=== PATIENT | female | born 1975 | race Caucasian/White ===

== ENCOUNTER 2025-02-16 19:50 | Emergency (ER) | payer MEDICAID, SELFPAY ==
[2025-02-16 19:54] VITALS: BP 128/90; PULSE 92; RESP 16; TEMP 36.7; O2SAT 100; BMI 19.3
--- NOTE | 2025-02-16 19:55 | ECG_ITS ---
[facility] Date: 2025-02-16 Pat Name: Marcia Diaz Department: Room: Gender: Female Incident Response Manager: : 1975 Requested By: Yue Avendaño Order Number: [id number] Isabell MD: Glendy Delgado M.D. Measurements Intervals [place] Rate: 88 P: 73 LA: 136 QRS: 80 QRSD: 89 T: 76 QT: 348 QTc: 422 Interpretive Statements SINUS RHYTHM PROBABLE INFERIOR MYOCARDIAL INFARCTION , OF INDETERMINATE AGE [35 ms Q WAVE IN II/aVF] No previous ECG available for comparison Electronically Signed On 02-17-2025 14:36:59 CDT by Glendy Delgado M.D. [email or web address]
--- NOTE | 2025-02-16 20:02 | XRR_ITS ---
PROCEDURE INFORMATION: Exam: XR Chest Exam date and time: 02/16/2025 8:10 PM Age: 49 years old Clinical indication: Pain; Chest pressure; Additional info: Chest pain TECHNIQUE: Imaging protocol: Radiologic exam of the chest. Views: 1 view. COMPARISON: No relevant prior studies available. FINDINGS: Lungs: Right lower lobe calcified granuloma. Pleural spaces: Unremarkable. No pleural effusion. No pneumothorax. Heart/Mediastinum: Unremarkable. No cardiomegaly. Bones/joints: Unremarkable. XR/XR chest 1V portable [id number] IMPRESSION: 1. No acute findings. 2. Right lower lobe calcified granuloma.
--- NOTE | 2025-02-16 20:08 | ED_ITS ---
HPI - Chest Pain 2 General: Chief Complaint: Chest Pain Stated Complaint: CP SOB Time Seen by Provider: 02/16/25 20:01 History of Present Illness: 49-year-old femaleWith a history of toba asset accountant dependence and hypertension who presents to the emergency room with chest pain. She has been having epigastric pain that is a Stevenson pressure.'s been going on for over a day now. She gone to local ambulance station and they done an EKG and felt like she needed to be evaluated so she finally came in. By the time she arrived here she said her pain had improved. Said for a while she was breathing shallowly and quickly to help with the pain. She developed some numbness in her hands around her mouth. No lower extremity swelling. No cardiac history. Related Data Allergies Allergy/AdvReac Type Severity Reaction Status Date / Time No Known Allergies Allergy Verified 02/16/25 19:59 Review of Systems 2 Narrative: Constitutional symptoms: Negative except as documented in HPI. Skin symptoms: Negative except as documented in HPI. Eye symptoms: Negative except as documented in HPI. ENMT symptoms: Negative except as documented in HPI. Respiratory symptoms: Negative except as documented in HPI. Cardiovascular symptoms: Negative except as documented in HPI. Gastrointestinal symptoms: Negative except as documented in HPI. Genitourinary symptoms: Negative except as documented in HPI. Musculoskeletal symptoms: Negative except as documented in HPI. Neurologic symptoms: Negative except as documented in HPI. Psychiatric symptoms: Negative except as documented in HPI. Endocrine symptoms: Negative except as documented in HPI. Physical Exam 2 Narrative: EXAM NARRATIVE: General: Alert, no acute distress. Skin: Warm, dry. Head: Normocephalic, atraumatic. Neck: Supple, trachea midline. Eye: Extraocular movements are intact. Ears, nose, mouth and throat: mucosa moist. Cardiovascular: Regular, Normal peripheral perfusion. Respiratory: Lungs are clear to auscultation, respirations are non-labored, breath sounds are equal, Symmetrical chest wall expansion. Gastrointestinal: Soft, Nontender, Non distended Musculoskeletal: Normal ROM, no deformity. Neurological: Alert and oriented, No focal neurological deficit observed. Psychiatric: Cooperative, appropriate mood & affect. Course 2 Vital Signs: Vital signs: Vital Signs Temperature 98.1 F 02/16/25 19:54 Pulse Rate 92 02/16/25 19:54 Respiratory Rate 16 02/16/25 19:54 Blood Pressure 128/90 06/13/25 19:54 Pulse Oximetry 100 02/16/25 19:54 Oxygen Delivery Me thod Room Air 02/16/25 19:54 MDM - Chest Pain Medical Decision Making Differential diagnosis for patient with chest pain includes but is not limited to and based on the above HPI, review of systems and physical exam: Pneumonia. unstable angina. angina. Acute coronary syndrome / AK. Pulmonary embolism. Costochondritis / musculoskeletal. Pleurisy. Pericarditis. Esophageal spasm. Pancreatis. Cholecystitis. Orders placed to evaluate differential diagnosis based on the above differential, HPI and physical exam EKG: Time 1954. Rate 88. Normal sinus rhythm, some Q wave abnormalities/ST depression., no ectopy, normal NE & QRS intervals, This was reviewed and interpreted by myself the ER physician at 1999 Chest x-ray: No acute process. No infiltrate. No pneumothorax. This was reviewed and interpreted by myself the emergency room physician. I also reviewed the radiology report. Lab Review: Laboratory results were reviewed and interpreted by myself the emergency room physician. No leukocytosis. No anemia. No renal failure. Troponin is negative. I reviewed the patient's medical record. Reexamination: Patient remained stable. No increased work of breathing. No altered mental status. No focal motor deficits. Remains chest pain-free Assessment and plan: Chest pain - Discharged home - Discussed plan with patient. Answered any questions. - Evaluation and treatment of this problem were appropriate in the emergency setting. Lab Data 02/16/25 20:12 02/16/25 20:12 Radiology Impressions Chest X-Ray 02/16/25 20:02 IMPRESSION: 1. No acute findings. 2. Right lower lobe calcified granuloma. Laboratory Results WBC 12.06 10^3/uL (3.29-11.43) H 02/16/25 20:12 RBC 4.90 10^6/uL (3.85-5.65) 02/16/25 20:12 Hgb 14.10 g/dL (11.27-16.99) 02/16/25 20:12 Hct 43.4 % (36-47) 02/16/25 20:12 MCV 88.6 fl (85-98) 02/16/25 20:12 MCH 28.8 pg (27-33) 02/16/25 20:12 MCHC 32.5 g/dL (30-55) 02/16/25 20:12 RDW 13.1 % (12.1-15.1) 02/16/25 20:12 Plt Count 319 10^3/cmm (157-399) 02/16/25 20:12 MPV 9.5 fL (7.4-10.4) 02/16/25 20:12 Neut % (Auto) 76.5 % 02/16/25 20:12 Lymph % (Auto) 15.9 % 02/16/25 20:12 [place] % (Auto) 6.2 % 02/16/25 20:12 Eos % (Auto) 0.8 % 02/16/25 20:12 Baso % (Auto) 0.2 % 02/16/25 20:12 Neut # (Auto) 9.21 10^3/uL (1.8-7.7) H 02/16/25 20:12 Lymph # (Auto) 1.9 10^3/uL (0.8-4.8) 02/16/25 20:12 [place] # (Auto) 0.8 10^3/uL (0.2-0.9) 02/16/25 20:12 Eos # (Auto) 0.1 10^3/uL (0.0-0.8) 02/16/25 20:12 Baso # (Auto) 0.0 10^3/uL (0.0-0.1) 02/16/25 20:12 Nucleated RBC % (auto) 0 % 02/16/25 20:12 Nucleated RBCs # 0.0 /100WBC 02/16/25 20:12 Sodium 138 mmol/L (136-145) 02/16/25 20:12 Potassium 4.0 mmol/L (3.5-5.1) 02/16/25 20:12 Chloride 100 mmol/L (98-107) 02/16/25 20:12 Carbon Dioxide 24 mmol/L (22-29) 02/16/25 20:12 Anion Gap 18.0 (5-19) 02/16/25 20:12 BUN 11 mg/dL (6-20) 02/16/25 20:12 Creatinine 0.6 mg/dL (0.5-0.9) 02/16/25 20:12 GFR Calculation 105.8 mL/min (90-130) 02/16/25 20:12 Glucose 164 mg/dL (65-115) H 02/16/25 20:12 Calculated Osmolality 289 mOsm/kg (285-295) 02/16/25 20:12 Lactic Acid 2.1 mmol/L (0.5-2.2) 02/16/25 20:12 Calcium 9.6 mg/dL (8.5-10.5) 02/16/25 20:12 Total Bilirubin 0.3 mg/dL (0.15-1.2) 02/16/25 20:12 AST 12 U/L (0-32) 02/16/25 20:12 ALT 11 U/L (0-33) 02/16/25 20:12 Alkaline Phosphatase 87 U/L (35-105) 02/16/25 20:12 Troponin T Baseline < 6 ng/L (0-10) 02/16/25 20:12 NT-Pro-B Natriuret Pep 159 pg/mL (0-125) H 02/16/25 20:12 Total Protein 7.4 g/dL (6.6-8.7) 02/16/25 20:12 Albumin 4.5 g/dL (3.5-5.2) 02/16/25 20:12 Globulin 2.9 g/dL (1.3-4.6) 02/16/25 20:12 All radiology interpretation(s) finalized by discharge Discharge Plan Discharge Patient Disposition: Home Clinical Impression: Non-cardiac chest pain Condition: Stable Discharge Orders: Discharge ED (Routine); Ordered 02/16/25 Ordered By: Yue Powell Referrals: Sofía Garcia FNP-C [Family Provider, Family Practice] Discharge Diet: Usual diet Discharge Activity: Increase activity as tolerated Patient Instructions: Noncardiac Chest Pain (ED), Opioid Safety, Pain Management Activity Restrictions/Additional Instructions: Thank you for choosing [facility] for your healthcare needs today. You have been screened and evaluated and felt safe for discharge. Health conditions do change or evolve sometimes and as such it is important that you follow up with your Primary Doctor to be re checked, 3-5 days is a general good time frame for follow up. You are always welcome to return to the ED for re assessment if your symptoms are worsening or you have new concerns Print Language: Icelandic Coding Level of Care Code ED Software Sales Manager for Susan Alvarez
[2025-02-16 20:20] LABS: Basophils % 0.2 %; Eosinophils # 0.1 10^3/uL (0.0-0.8); Eosinophils % 0.8 %; Hematocrit 43.4 % (36-47); Lymphocytes # 1.9 10^3/uL (0.8-4.8); Lymphocytes % 15.9 %; Mean Corpuscular HGB Conc 32.5 g/dL (30-55); Mean Corpuscular Hemoglobin 28.8 pg (27-33); Mean Corpuscular Volume 88.6 fl (85-98); Mean Platelet Volume 9.5 fL (7.4-10.4); Monocytes # 0.8 10^3/uL (0.2-0.9); Monocytes % 6.2 %; Neutrophils # 9.21 10^3/uL (1.8-7.7); Neutrophils % 76.5 %; Nucleated Red Blood Cells % 0 %; Platelet Count 319 10^3/cmm (157-399); Red Cell Distribution Width 13.1 % (12.1-15.1); White Blood Count 12.06 10^3/uL (3.29-11.43)
[2025-02-16 20:40] LABS: Troponin(5th) Baseline < 6 ng/L (0-10)
[2025-02-16 20:42] LABS: Lactic Sepsis W/Reflex 2.1 mmol/L (0.5-2.2)
[2025-02-16 20:56] LABS: Alanine Aminotransferase 11 U/L (0-33); Albumin Level 4.5 g/dL (3.5-5.2); Alkaline Phosphatase 87 U/L (35-105); Aspartate Amino Transferase 12 U/L (0-32); Blood Urea Nitrogen 11 mg/dL (6-20); Calcium 9.6 mg/dL (8.5-10.5); Carbon Dioxide 24 mmol/L (22-29); Chloride 100 mmol/L (98-107); Creatinine Clr Calc Pharmacy 101.5615; Globulin 2.9 g/dL (1.3-4.6); Glomerular Filtration Rate 105.8 mL/min (90-130); Glucose 164 mg/dL (65-115); NT Pro B Type Natriuretic Pept 159 pg/mL (0-125); Osmolality Calculated 289 mOsm/kg (285-295); Sodium 138 mmol/L (136-145); Total Bilirubin 0.3 mg/dL (0.15-1.2); Total Protein 7.4 g/dL (6.6-8.7)
[2025-02-16 21:01] VITALS: BP 121/86; PULSE 78; RESP 16; O2SAT 98
[2025-02-16 21:55] VITALS: BP 131/86; PULSE 89; RESP 16; O2SAT 98
[2025-02-16 22:02] LABS: Reflex Lactate Order REFLEX LACTIC ORDERD
== END 2025-02-16 21:56 | disposition home or self-care (01) ==
PROVIDERS: Emergency Provider Emergency Medicine; Family Provider Nurse Practitioner Family
DX: R07.89 Other chest pain (principal); I10 Essential (primary) hypertension
CPT/HCPCS: 36415; 71045; 80053; 83605; 83880; 84484; 85025; 93005; 99285